=== PATIENT | male | born 1995 | race Caucasian/White ===

== ENCOUNTER 2017-03-05 23:12 | Emergency (ER) | payer OTHER ==
[~2017-03-05] VITALS: Ht 170.2 cm; Wt 62.0 kg
[2017-03-05 23:27] VITALS: Ht 170.2 cm; Wt 62.0 kg
--- NOTE | 2017-03-06 00:04 | ERD ---
ER Documentation Chief Complaint Date/Time DATE: 03/06/17 TIME: 00:02 Chief Complaint Left testicular pain x 2 days, intermittent x 1 year HPI 22-year-old male presents here in emergency department for complaints of left testicular pain for 2 days patient has been having the same problems for the last one year. Patient has been having pain on and off. Patient described the pain as sharp pain, 6/10 Intermittent pain. Patient denies any swallowing. Patient denies any pain on discharge. Patient denies any fever or chills. Patient, on affected area. Patient denies any new sexual partner. Patient denies hematuria or dysuria. ROS All systems reviewed and are negative except as per history of present illness. Medications Home Meds Active Scripts Tramadol HCl (Tramadol HCl) 50 Mg Tablet, 50 MG PO Q6 Y for SEVERE PAIN LEVEL 7- 10, #20 TAB Prov:TIMMY HOFFMANN NP 03/06/17 Ibuprofen* (Motrin*) 600 Mg Tab, 600 MG PO Q6, #30 TAB Prov:TIMMY HOFFMANN NP 03/06/17 Reported Medications [none] Unknown Strength No Conflict Check 03/06/17 Allergies Allergies: Coded Allergies: No Known Allergy (Unverified , 03/05/17) PMhx/Soc Medical and Surgical Hx: pt denies Medical Hx, pt denies Surgical Hx History of Surgery: No Anesthesia Reaction: No Hx Neurological Disorder: No Hx Respiratory Disorders: No Hx Cardiac Disorders: No Hx Psychiatric Problems: No Hx Miscellaneous Medical Probl: No Hx Alcohol Use: Yes (occasional) Hx Substance Use: Yes (marijuana) Hx Tobacco Use: No Smoking Status: Never smoker FmHx Family History: No coronary disease, No diabetes, No other Physical Exam Vitals Vital Signs Date Time Temp Pulse Resp B/P Pulse Ox O2 Delivery O2 Flow Rate FiO2 03/05/17 23:27 98.7 49 18 137/79 100 Physical Exam GENERAL: The patient is well developed and appropriate for usual state of health, in no apparent distress. CHEST: Clear to auscultation bilaterally. There are no rales, wheezes or rhonchi. HEART: Regular rate and rhythm. No murmurs, clicks, rubs or gallops. No S3 or S4. ABDOMEN: Soft, nontender and nondistended. Good bowel sounds. No rebound or guarding. No gross peritonitis. No gross organomegaly or masses. No Torres sign or McBurney point tenderness. BACK: No midline or flank tenderness. EXTREMITIES: Equal pulses bilaterally. There is no peripheral clubbing, cyanosis or edema. No focal swelling or erythema. Full range of motion. Grossly neurovascularly intact. NEURO: Alert and oriented. Cranial nerves 2-12 intact. Motor strength in all 4 extremities with 5/5 strength. Sensation grossly intact. Normal speech and gait. SKIN: There is no apparent rash or petechia. The skin is warm and dry. HEMATOLOGIC AND LYMPHATIC: There is no evidence of excessive bruising or lymphedema. No gross cervical, axillary, or inguinal lymphadenopathy. : Mild tenderness on palpation on the left testicular area, no swelling noted , no redness noted, no penile discharge, no lesions noted. Results 24 hrs Laboratory Tests Test 03/06/17 00:16 Urine Color YELLOW Urine Clarity CLEAR Urine pH 6.0 Urine Specific [place] 1.026 Urine Ketones TRACEmg/dL Urine Nitrite NEGATIVEmg/dL Urine Bilirubin NEGATIVEmg/dL Urine Urobilinogen NEGATIVEmg/dL Urine Leukocyte Esterase 1+Esha/ul Urine Microscopic RBC 9/HPF Urine Microscopic WBC 26/HPF Urine Hemoglobin 1+mg/dL Urine Glucose NEGATIVEmg/dL Urine Total Protein NEGATIVEmg/dl Current Medications Medications (Trade) Dose Ordered Sig/Edilberto Route PRN Reason Start Time Stop Time Status Last Admin Dose Admin Tramadol HCl (Ultram) 50 mg ONCE ONCE PO 03/06/17 02:30 03/06/17 02:31 03/06/17 02:13 Patient was given medication for pain here in emergency department, after treatment, patient verbalized feeling much better. Patient's pain is improved. PROCEDURE: Testicle ultrasound with power Doppler. CLINICAL INDICATION: Scrotal pain. TECHNIQUE: Multiple sonographic images of the scrotal region were obtained utilizing a linear array transducer with grayscale and color-flow and a Doppler imaging. The images were reviewed on a high-resolution PACS workstation. COMPARISON: None. FINDINGS: Bilateral testicles are normal in size, contour, echogenicity and echotexture. The right testicle measures 4.3 x 2.4 x 2.8 cm and the left testicle measures 4.2 x 2.2 x 2.9 cm. Testicle arterial and venous flow are normal. There is no evidence of testicular mass or torsion. There is no evidence of orchitis. Bilateral epididymi are normal in size, contour, position and echogenicity. The right epididymis measures 10.2 x 8.4 mm the left epididymis measures 12.4 x 10.4 mm. There is no evidence of epididymitis. There is no significant hydrocele or varicocele. Scrotal soft tissues are unremarkable. IMPRESSION: Unremarkable testicular ultrasound. .Ric Beal MD, MD Date Time Electronically viewed and signed by .Ric Beal MD, on 03/06/2017 01:53 .T/ CC: TIMMY HOFFMANN NP Procedures/MDM Medical decision making: Patient's testicular pain nonspecific at this time, no torsion noted, no orchitis noted, no symptoms of epididymitis. Patient has +1 leukocytes in the urine, will be treated for urinary tract infection, possible urethritis. Low suspicion for STDs. No symptoms of any infectious disease at this time. No swelling noted. Patient was given for ibuprofen for pain, tramadol for severe pain, ciprofloxacin is advised to see a urologist specialist for further evaluation of symptoms. Patient was advised to return to emergency department for any worsening symptoms. Disposition: Home. Stable. Departure Diagnosis: Primary Impression: Testicular pain, left Additional Impression: Urethritis Condition: Stable Patient Instructions: Testicular Pain, Unclear Cause, Urethritis in Men TIMMY HOFFMANN NP Mar 06, 2017 00:04
[2017-03-06 00:42] LABS: ADD UMIC YES; UR ASCORBIC ACID NEGATIVE (NEGATIVE); UR BILIRUBIN (Dip) NEGATIVE (NEGATIVE); UR BLOOD (Dip) 1+ mg/dL (NEGATIVE); UR CLARITY CLEAR (CLEAR); UR COLOR YELLOW (YELLOW); UR GLUCOSE (Dip) NEGATIVE (NEGATIVE); UR KETONES (Dip) TRACE mg/dL (NEGATIVE); UR LEUKOCYTE ESTERASE (Dip) 1+ Leu/ul (NEGATIVE); UR NITRITE (Dip) NEGATIVE (NEGATIVE); UR RBC 9 /HPF (0-5); UR SPECIFIC GRAVITY (Dip) 1.026 (1.003-1.030); UR TOTAL PROTEIN (Dip) NEGATIVE (NEGATIVE); UR UROBILINOGEN (Dip) NEGATIVE (NEGATIVE)
--- NOTE | 2017-03-06 01:53 | RADRPT ---
PROCEDURE: Testicle ultrasound with power Doppler. CLINICAL INDICATION: Scrotal pain. TECHNIQUE: Multiple sonographic images of the scrotal region were obtained utilizing a linear arra y transducer with grayscale and color-flow and a Doppler imaging. The images were reviewed on a high -resolution PACS workstation. COMPARISON: None. FINDINGS: Bilateral testicles are normal in size, contour, echogenicity and echotexture. The right testicle m easures 4.3 x 2.4 x 2.8 cm and the left testicle measures 4.2 x 2.2 x 2.9 cm. Testicle arterial and venous flow are normal. There is no evidence of testicular mass or torsion. There is no evidence of orchitis. Bilateral epididymi are normal in size, contour, position and echogenicity. The right epididymis me asures 10.2 x 8.4 mm the left epididymis measures 12.4 x 10.4 mm. There is no evidence of epididymit is. There is no significant hydrocele or varicocele. Scrotal soft tissues are unremarkable. IMPRESSION: Unremarkable testicular ultrasound. .Ric Beal MD, MD Date Time Electronically viewed and signed by .Ric Beal MD, MD on 03/06/2017 01:53 .T/
[2017-03-06] MEDS ORDERED: TRAM50TA2 PO (02:13)
[2017-03-06] MEDS ORDERED: IBUP-1542 PO (02:13)
[2017-03-06] MEDS ORDERED: CIPR500T4 PO (02:17)
[2017-03-06 02:26] VITALS: BP 122/84; PULSE 66; RESP 18; TEMP 98.3
[2017-03-06] MEDS ORDERED: traMADol 50 MG TAB PO ONE (02:30)
== END 2017-03-06 02:34 | disposition home or self-care (01) ==
LOC: FTE 23:12
DX: N50.812 Left testicular pain (principal); N34.2 Other urethritis
CPT/HCPCS: 76870; 81001; Z7502; Z7610

== ENCOUNTER 2017-08-21 13:12 | Emergency (ER) | END 2017-08-21 17:27 | disposition home or self-care (01) ==

== ENCOUNTER 2017-08-22 18:08 | Emergency (ER) | END 2017-08-22 21:03 | disposition left against medical advice (07) ==